=== PATIENT | male | born 1985 | race Caucasian/White ===

== ENCOUNTER 2018-01-19 01:21 | Emergency (ER) | payer BC ==
[~2018-01-19] VITALS: Ht 180.3 cm; Wt 81.6 kg
--- NOTE | 2018-01-19 01:37 | NUR ---
PT BIB [employer] FROM [facility], C/O WITHDRAWL SYMPTOMS FROM [employer]. PT A&OX4, DENIES CP, SOB. NO TREMORS NOTED. STATES HE FEELS NAUSEATED.
[2018-01-19] MEDS ORDERED: TRAZODONE 100 MG TABLET (01:40)
[2018-01-19] MEDS ORDERED: LORAZEPAM 1 MG TABLET (01:40)
[2018-01-19] MEDS ORDERED: HYDROXYZINE PAM 25 MG CAP (01:40)
[2018-01-19] MEDS ORDERED: BACLOFEN 20 MG TABLET (01:40)
--- NOTE | 2018-01-19 01:40 | NUR ---
DR SAPPHIRE MERIDA MD AT BEDSIDE FOR MSE.
[2018-01-19] MEDS ORDERED: PROCHLORPERAZINE EDISYLATE 10 MG/2 ML VIAL IM ONE (01:45)
[2018-01-19] MEDS ORDERED: LORAZEPAM 0.5 MG TABLET PO ONE (01:45)
[2018-01-19] MEDS ORDERED: BENZTROPINE MESYLATE 2 MG/2 ML AMPUL IM ONE (01:45)
[2018-01-19] MEDS ORDERED: LORAZEPAM 1 MG TABLET ONE (01:52)
[2018-01-19] MEDS ORDERED: BENZTROPINE MESYLATE 2 MG/2 ML AMPUL ONE (01:52)
[2018-01-19] MEDS ORDERED: PROCHLORPERAZINE EDISYLATE 10 MG/2 ML VIAL ONE (01:53)
--- NOTE | 2018-01-19 02:02 | NUR ---
Patient discharged to home in stable conditon. Written and verbal after care instructions given. Patient verbalizes understanding of instructions. Pt left ER accompanied by rep from detox facility. Pt took all personal belongings.
[2018-01-19 02:06] VITALS: BP 133/68
== END 2018-01-19 02:07 | disposition home or self-care (01) ==
LOC: ER 01:28
DX: F11.23 Opioid dependence with withdrawal (principal); Z79.899 Other long term (current) drug therapy
CPT/HCPCS: A4663; J0515; J0780